=== PATIENT | female | born 1985 | race Caucasian/White ===

== ENCOUNTER 2017-12-27 10:57 | Emergency (ER) | payer BC ==
[~2017-12-27] VITALS: Ht 160 cm; Wt 89.1 kg
[~2017-12-27 10:57] MED LIST: AMOXICILLIN 50500 MG; AMOXICILLIN875 MG PO; CALCIUM 500 +1 EAC4; CARAFATE 1 GM TA1 GM PO; CARISOPRODOL 3350 MG PO; CELLCEPT500 MG PO; HYDROCODONE-APA1 TA1; HYDROXYCHLOROQ200 M1; IBUPROFEN 800800 M1 PO; METFORMIN HCL500 MG PO; MULTIVITAMINS; NORCO 5-325 TA1 EACH PO; PATANOL5 ML OPHTHALMIC; PEPCID40 MG PO; PREDNISONE; PREDNISONE 20 M20 M1 PO; PREDNISONE 5 MG5 M1 PO; PRILOSEC 20 MG20 MG PO; REGLAN 10 MG TA10 MG PO; TRAMADOL 50 MG50 MG PO; TUSSIONEX PENN473 ML PO; VEETIDS 500500 MG PO; VICODIN 5-5001 EACH PO; ZOFRAN 4 MG ORAL4 M1 DIS; ZOFRAN ODT4 MG PO; ZOFRAN4 MG PO; ZPAK PO
[2017-12-27 11:22] LABS: URINE BILIRUBIN NEGATIVE (Negative); URINE BLOOD NEGATIVE (Negative); URINE CLARITY CLEAR; URINE COLOR YELLOW; URINE GLUCOSE-RANDOM NEGATIVE (Negative); URINE KETONES NEGATIVE (Negative); URINE LEUKOCYTES-REFLEX NEGATIVE (Negative); URINE NITRITE-REFLEX NEGATIVE (Negative); URINE PROTEIN TRACE (Negative); URINE UROBILINOGEN 0.2 E.U./dl (0.2-1.0)
[2017-12-27 11:33] LABS: ABSOLUTE BASOPHILS 0.1 thou/uL (0.0-0.2); ABSOLUTE LYMPHOCYTES 1.4 thou/uL (0.8-5.3); ABSOLUTE MONOCYTES 0.9 thou/uL (0.0-1.2); ABSOLUTE NEUTROPHILS 8.4 thou/uL (1.6-8.1); BASOPHILS 0.5 %; EOSINOPHILS 0.2 %; HEMOGLOBIN 13.7 gm/dL (12.0-15.0); LYMPHOCYTES 13.1 %; MCH 28.9 pg (26.0-34.0); MCHC 33.5 g/dL (28.0-37.0); MCV 86.4 fL (80.0-100.0); MONOCYTES 8.1 %; MPV 10.8 fl. (7.2-11.1); NUCLEATED RBCS 0 /100WBC; PLATELET COUNT* 219 thou/uL (150-400); POLYS 78.1 %; RBC 4.74 mil/uL (4.20-5.00); RDW-CV 13.8 % (10.5-14.5); WBC 10.8 thou/uL (4.0-11.0)
[2017-12-27 11:44] LABS: CALCIUM 8.7 mg/dL (8.5-10.1); CREATININE 0.8 mg/dL (0.6-1.3)
[2017-12-27 11:48] LABS: ALBUMIN 3.6 g/dL (3.4-5.0); TOTAL BILIRUBIN 0.4 mg/dL (<0.1-1.0); TOTAL PROTEIN 7.3 g/dL (6.4-8.2)
[2017-12-27] MEDS ORDERED: ZOFRAN ODT4 MG SUBLING (11:48)
[2017-12-27 12:45] VITALS: BP 103/62
== END 2017-12-27 12:46 | disposition home or self-care (01) ==
LOC: M.ERS 10:57
PROVIDERS: Family Medicine
DX: R11.2 Nausea with vomiting, unspecified (principal); R10.9 Unspecified abdominal pain; M79.7 Fibromyalgia; M32.9 Systemic lupus erythematosus, unspecified; Z98.890 Other specified postprocedural states

== ENCOUNTER 2018-08-07 22:11 | Emergency (ER) | payer BC ==
[~2018-08-07] VITALS: Ht 160 cm; Wt 90.7 kg
[~2018-08-07 22:11] MED LIST changes: +ZOFRAN ODT4 MG SUBLING
[2018-08-07 22:24] LABS: URINE BILIRUBIN NEGATIVE (Negative); URINE BLOOD TRACE (Negative); URINE CLARITY CLEAR; URINE COLOR YELLOW; URINE GLUCOSE-RANDOM NEGATIVE (Negative); URINE KETONES NEGATIVE (Negative); URINE LEUKOCYTES-REFLEX NEGATIVE (Negative); URINE NITRITE-REFLEX NEGATIVE (Negative); URINE PROTEIN NEGATIVE (Negative); URINE SPECIFIC GRAVITY <= 1.005 (1.005-1.030); URINE UROBILINOGEN 0.2 E.U./dl (0.2-1.0)
[2018-08-07] MEDS ORDERED: HYDROXYCHLOROQ200 M1 (22:25)
[2018-08-07 22:55] LABS: ABSOLUTE EOSINOPHILS 0.1 thou/uL (0.0-0.7); ABSOLUTE LYMPHOCYTES 1.9 thou/uL (0.8-5.3); ABSOLUTE MONOCYTES 0.6 thou/uL (0.0-1.2); ABSOLUTE NEUTROPHILS 4.9 thou/uL (1.6-8.1); BASOPHILS 0.7 %; EOSINOPHILS 0.8 %; HEMOGLOBIN 13.6 gm/dL (12.0-15.0); LYMPHOCYTES 25.6 %; MCH 29.5 pg (26.0-34.0); MCV 86.6 fL (80.0-100.0); MONOCYTES 7.8 %; MPV 11.1 fl. (7.2-11.1); NUCLEATED RBCS 0 /100WBC; PLATELET COUNT* 225 thou/uL (150-400); POLYS 65.1 %; RBC 4.62 mil/uL (4.20-5.00); WBC 7.5 thou/uL (4.0-11.0)
[2018-08-07 23:34] LABS: CALCIUM 9.3 mg/dL (8.5-10.1); CREATININE 0.8 mg/dL (0.6-1.3); POTASSIUM 4.1 mmol/L (3.5-5.1)
[2018-08-07 23:38] LABS: ALBUMIN 3.2 g/dL (3.4-5.0); TOTAL BILIRUBIN 0.2 mg/dL (<0.1-1.0); TOTAL PROTEIN 6.6 g/dL (6.4-8.2)
[2018-08-07] MEDS ORDERED: ZOFRAN ODT4 MG PO (23:42)
[2018-08-07] MEDS ORDERED: MOTION RELIEF25 MG PO (23:42)
[2018-08-07 23:51] VITALS: BP 109/69
--- NOTE | 2018-08-09 12:39 | EKG ---
[place] [address] ELECTROCARDIOGRAM REPORT Name: CUATE ORTEGA 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: WILL : 1985 Requested By: Giselle Boss Order Number: [id number] MD: Esvin Bernard Measurements Intervals [place] Rate: 62 P: 1 AR: 167 QRS: 64 QRSD: 94 T: 27 QT: 436 QTc: 443 Interpretive Statements Sinus rhythm Baseline wander in lead(s) II,III,aVF Compared to ECG 05/16/2010 11:57:36 No significant changes Electronically Signed On 08-09-2018 12:39:24 CDT by Esvin Bernard [email or web address] <ELECTRONICALLY SIGNED> By: Esvin Bernard MD, [facility] 08/09/18 1239 230 230 Esvin Bernard MD, [facility] /EPI
== END 2018-08-07 23:52 | disposition home or self-care (01) ==
LOC: M.ERS 22:11
PROVIDERS: Nurse Practitioner Family
DX: R42 Dizziness and giddiness (principal); M32.9 Systemic lupus erythematosus, unspecified; M79.7 Fibromyalgia; Z98.890 Other specified postprocedural states

== ENCOUNTER 2019-03-20 17:26 | Emergency (ER) | payer BC ==
[~2019-03-20] VITALS: Ht 160 cm; Wt 88.5 kg
[~2019-03-20 17:26] MED LIST changes: +MOTION RELIEF25 MG PO
[2019-03-20] MEDS ORDERED: TOPAMAX100 MG PO (17:38)
[2019-03-20] MEDS ORDERED: SUMATRIPTAN (17:39)
[2019-03-20] MEDS ORDERED: ONZETRA XSAIL11 MG PO (17:39)
[2019-03-20] MEDS ORDERED: BIRTH CONTROL (17:40)
[2019-03-20 18:06] LABS: INFLUENZA A ANTIGEN Negative (Negative); INFLUENZA B ANTIGEN Negative (Negative)
[2019-03-20] MEDS ORDERED: ZPAK PO (18:51)
[2019-03-20] MEDS ORDERED: VENTOLIN HFA 1818 GM INH (18:51)
[2019-03-20] MEDS ORDERED: TESSALON PERLE100 MG PO (18:51)
[2019-03-20 18:58] VITALS: BP 116/71
== END 2019-03-20 18:59 | disposition home or self-care (01) ==
LOC: M.ERS 17:26
PROVIDERS: Nurse Practitioner Family
DX: J20.9 Acute bronchitis, unspecified (principal); M79.7 Fibromyalgia; M32.9 Systemic lupus erythematosus, unspecified; Z98.890 Other specified postprocedural states

== ENCOUNTER 2019-12-30 08:24 | Emergency (ER) | payer BC ==
[~2019-12-30] VITALS: Ht 167.6 cm; Wt 72.6 kg
[~2019-12-30 08:24] MED LIST changes: +BIRTH CONTROL; +ONZETRA XSAIL11 MG PO; +SUMATRIPTAN; +TESSALON PERLE100 MG PO; +TOPAMAX100 MG PO; +VENTOLIN HFA 1818 GM INH
[2019-12-30] MEDS ORDERED: PLAQUENIL200 MG PO (08:38)
[2019-12-30] MEDS ORDERED: PREDNISOLONE SO15 MG PO (08:38)
[2019-12-30 09:17] LABS: CALCIUM 8.9 mg/dL (8.5-10.1); CREATININE 0.9 mg/dL (0.6-1.3)
[2019-12-30] MEDS ORDERED: NORCO 5-325 TA1 EAC2 PO (09:49)
[2019-12-30] MEDS ORDERED: FLEXERIL PO (09:49)
[2019-12-30 10:00] VITALS: BP 130/80
== END 2019-12-30 10:00 | disposition home or self-care (01) ==
LOC: M.ERS 08:24
PROVIDERS: Emergency Medicine Emergency Medical Services
DX: M79.604 Pain in right leg (principal); M79.7 Fibromyalgia; Z98.890 Other specified postprocedural states; Z79.899 Other long term (current) drug therapy